=== PATIENT | female | born 1980 | race Two or more races ===

== ENCOUNTER 2025-01-30 22:42 | Emergency (ER) | payer MEDICAID, OTHER ==
[~2025-01-30] VITALS: Ht 157.5 cm; Wt 110.1 kg
--- NOTE | 2025-01-30 23:46 | DVH ---
Left lower extremity venous duplex Clinical History: redness, swelling, pain Comparison: None Technique: Duplex Doppler evaluation of the deep venous system of the left lower extremity from the common femor al vein to the popliteal vein including color Doppler and spectral/pulsed waveform analysis was perfo rmed. Findings: The common femoral vein demonstrates appropriate compressibility and waveform variability. There is compressibility/patency of the great saphenous vein at the proximal thigh. The femoral vein demonstrates appropriate compressibility and waveform variability. The deep femoral vein demonstrates appropriate compressibility and waveform variability. The popliteal vein demonstrates appropriate compressibility and waveform variability. There is normal compressibility at the tibioperoneal trunk. Impression: 1. No left femoropopliteal venous thrombosis. 2. Contralateral common femoral vein is patent.
[2025-01-31 01:29] LABS: Hematocrit 37.8 % (36.0-46.0); Hemoglobin 12.2 g/dL (12.2-16.2); Mean Corpuscular Hemoglobin 24.7 pg (28.0-32.0); Mean Corpuscular Volume 76.3 fL (80.0-100.0); Nucleated Red Blood Cells % 0.0 %
[2025-01-31] MEDS ORDERED: VANCOMYCIN 1GM/250ML KIT 250 ML IV ONE (01:30)
[2025-01-31 01:38] LABS: Chloride 105 mmol/L (98-107); Sodium 142 mmol/L (136-145)
[2025-01-31 01:39] LABS: Anion Gap 10 (5-15); Carbon Dioxide 27 mmol/L (20-31)
[2025-01-31 01:40] LABS: Calcium 9.1 mg/dL (8.7-10.4)
[2025-01-31 01:44] LABS: BUN/Creatinine Ratio 7.5 (10.0-20.0)
[2025-01-31 01:58] LABS: Blood Urea Nitrogen 6 mg/dL (9-23); Glucose 119 mg/dL (74-106); Potassium 3.5 mmol/L (3.5-5.1)
--- NOTE | 2025-01-31 03:02 | ED.PDOC ---
Musculoskeletal HPI Comments 44-year-old female who presents with left lower leg pain, redness, and swelling for over the past 1-1/2 week. He has been on unprovoked and atraumatic onset, which has been progressively worsening since. Denies any shortness of breath, chest pain, or further associated symptoms. REVIEW OF SYSTEMS: General: No fever, no chills, or fatigue HEENT: No sore throat, no earache, no congestion, no neck pain. Cardiac: No chest pain. No palpitations. Lungs: No shortness of breath, no cough. GI: No nausea, no vomiting, no diarrhea, no constipation, no abdominal pain : No dysuria, frequency, or urgency. No hematuria. Musculoskeletal: Left lower leg pain and swelling Skin: Left lower leg redness. No rash, no itching. Neuro: No headache, no dizziness, no weakness PHYSICAL EXAM: General: Awake, alert and oriented. No acute distress. Skin: Skin in warm, dry and intact. Appropriate color for ethnicity. HEENT: The head is normocephalic and atraumatic. Conjunctivae are clear without exudates or hemorrhage. Sclera is non-icteric. EOM are intact. No signs of nystagmus. Eyelids are normal in appearance without swelling or lesions. Oral mucosa is pink and moist Neck: The neck is supple with normal range of motion. No JVD. Cardiac: Heart rate and rhythm are normal. No murmurs, gallops, or rubs are auscultated. Respiratory: No signs of respiratory distress. Lung sounds are clear in all lobes bilaterally without rales, rhonchi, or wheezes. Abdominal: Abdomen is soft, non-tender without distention, guarding or rigidity. Bowel sounds are present and normoactive in all four quadrants. Extremities: Left lower extremity is erythematous, edematous, and tender with retained good DP pulse. Remaining extremities are atraumatic in appearance without deformity or edema. Neurological: The patient is awake, alert and oriented to person, place, and time with normal speech. Speech is clear. There is no facial asymmetry. Psychiatric: Appropriate mood and affect. Good judgement and insight. Chief Complaint: Lower Extremity Time Seen by MD: 00:13 Reviewed Notes: Nurses Notes Allergies: Coded Allergies: NO KNOWN ALLERGIES (Unverified , 01/30/25) Information Source: Patient Mode of Arrival: Ambulatory Past Medical History Past Medical History (Other): Heart murmur Was a procedure done? Was a procedure done?: No Differential Diagnosis EXT Differential Diagnosis: Cellulitis, Deep Vein Thrombosis, Sprain, Gout, DJD, Contusion, Strain, Neurovascular injury, Arthritis, Bursitis X-Ray, Labs, Meds, VS Vital Signs Date Time Temp Pulse Resp B/P (MAP) Pulse Ox O2 Delivery O2 Flow Rate FiO2 01/31/25 08:11 98.3 96 16 156/98 (117) 94 98.3 01/30/25 22:45 99.0 111 20 95/62 94 99.0 Lab Test 01/31/25 00:50 Range/Units White Blood Count 8.9 4.4-10.8 10^3/uL Red Blood Count 4.95 4.0-5.20 10^6/uL Hemoglobin 12.2 12.2-16.2 g/dL Hematocrit 37.8 36.0-46.0 % Mean Corpuscular Volume 76.3 L 80.0-100.0 fL Mean Corpuscular Hemoglobin 24.7 L 28.0-32.0 pg Mean Corpuscular Hemoglobin Concent 32.4 32.0-36.0 g/dL Red Cell Distribution Width 17.0 H 11.8-14.3 % Platelet Count 385 140-450 10^3/uL Mean Platelet Volume 7.3 6.9-10.8 fL Neutrophils (%) (Auto) 67.0 37.0-80.0 % Lymphocytes (%) (Auto) 21.7 10.0-50.0 % Monocytes (%) (Auto) 7.3 0.0-12.0 % Eosinophils (%) (Auto) 3.1 0.0-7.0 % Basophils (%) (Auto) 0.9 0.0-2.0 % Neutrophils # (Auto) 6.0 1.6-8.6 10 ^3/uL Lymphocytes # (Auto) 1.9 0.4-5.4 10 ^3/uL Monocytes # (Auto) 0.6 0-1.3 10 ^3/uL Eosinophils # (Auto) 0.3 0-0.8 10 ^3/uL Basophils # (Auto) 0.1 0-0.2 10 ^3/uL Nucleated Red Blood Cells 0.0 % Sodium Level 142 136-145 mmol/L Potassium Level 3.5 3.5-5.1 mmol/L Chloride Level 105 98-107 mmol/L Carbon Dioxide Level 27 20-31 mmol/L Anion Gap 10 5-15 Blood Urea Nitrogen 6 L 9-23 mg/dL Creatinine 0.80 0.550-1.02 mg/dL Glomerular Filtration Rate Calc 92 >90 mL/min BUN/Creatinine Ratio 7.5 L 10.0-20.0 Serum Glucose 119 H 74-106 mg/dL Calcium Level 9.1 8.7-10.4 mg/dL Microbiology Date/Time Source Procedure Growth Status 01/31/25 03:30 Blood Blood Culture - Preliminary NO GROWTH AFTER 24 HOURS OF INCUBATION. Resulted 01/31/25 03:30 Blood Blood Culture - Preliminary NO GROWTH AFTER 24 HOURS OF INCUBATION. Resulted [place] [address] Ph: [phone] DIAGNOSTIC IMAGING Diagnostic Imaging Report : [id number] Signed PATIENT: BINTA DICKINSON ACCT: [id number] UNIT: [id number] : 1980 LOC: ER ROOM / BED: / AGE / SEX: 44 / F ADM STATUS: REG ER SERVICE 2310 ORDERING PHYSICIAN: RIRI BOYLE MD PROCEDURE(s): LLDVT - LT Lower DVT REASON: redness, swelling, pain ORDER NUMBER(s): [id number], ACCESSION NUMBER(s): [id number] Left lower extremity venous duplex Clinical History: redness, swelling, pain Comparison: None Technique: Duplex Doppler evaluation of the deep venous system of the left lower extremity from the common femoral vein to the popliteal vein including color Doppler and spectral/pulsed waveform analysis was performed. Findings: The common femoral vein demonstrates appropriate compressibility and waveform variability. There is compressibility/patency of the great saphenous vein at the proximal thigh. The femoral vein demonstrates appropriate compressibility and waveform variability. The deep femoral vein demonstrates appropriate compressibility and waveform variability. The popliteal vein demonstrates appropriate compressibility and waveform variability. There is normal compressibility at the tibioperoneal trunk. Impression: 1. No left femoropopliteal venous thrombosis. 2. Contralateral common femoral vein is patent. Electronically Signed by: Darius shannon 01/30/2025 23:43:47 PM DICTATED BY: DARIUS CONNELLY MD DICTATED DATE/TIME: 01/30/252342 SIGNED BY: DARIUS CONNELLY MD SIGNED DATE/TIME: 01/30/252342 CC: Time of 1ST Reevaluation: 00:43 Reevaluation 1ST: Unchanged Patient Education/Counseling: Treatment, Other (Need for admission) Family Education/Counseling: No Family Present Departure 1 Departure Time of Disposition: 03:32 Impression: Primary Impression: Cellulitis Disposition: ADMITTED INPATIENT Condition: Stable Comments MDM: Patient admitted to hospitalist service for further treatment, evaluation and monitoring. Extensive evaluation was performed in attempt to identify or rule out: (See differential diagnosis section) The following tests were ordered, and results were reviewed by me and discussed with patient: (See diagnostic results section) The following test were independently interpreted by me: N/A I reviewed the following test results read by other providers: Left lower extremity DVT ultrasound Decision regarding hospitalization or escalation of hospital level of care: Risk and benefits of admission for further treatment of patient's condition was considered. Due to patient's current clinical condition, high risk of decline and poor outcome if discharged and need for further inpatient management and monitoring, patient will be admitted to the hospital. Critical Care Note Critical Care Time?: No Stability Stability form required: No Heart Score Heart Score: Heart Score Response (Comments) Value History N/A 0 EKG N/A 0 Age N/A 0 Risk Factors N/A 0 Troponin N/A 0 Total 0 I personally scribed for RIRI BOYLE MD ([email or web address]) on 01/31/25 at 03:02. Electronically submitted by Silvestre Cruz ([email or web address]). I personally scribed for RIRI BOYLE MD ([email or web address]) on 01/31/25 at 05:01. El ectronically submitted by Silvestre Cruz ([email or web address]). RIRI BOYLE MD Jan 31, 2025 03:02
[2025-01-31 08:11] VITALS: BP 156/98; PULSE 96; RESP 16; TEMP 98.3; O2SAT 94
== END 2025-01-31 10:30 | disposition left against medical advice (07) ==
LOC: ER 22:45
DX: L03.116 Cellulitis of left lower limb (principal); Z79.899 Other long term (current) drug therapy
CPT/HCPCS: 36415; 80048; 85025; 87040; 93971; 99284; J0696